=== PATIENT | male | born 1965 | race Caucasian/White ===

== ENCOUNTER 2021-12-20 14:57 | Emergency (ER) | payer BC ==
[~2021-12-20] VITALS: Ht 182.9 cm; Wt 117.9 kg
[2021-12-20 15:01] VITALS: BP_SYST 150
--- NOTE | 2021-12-20 15:10 | NUR ---
bib having left sided cp x 5days [address] patel at bedside, vss
--- NOTE | 2021-12-20 15:42 | NUR ---
BLOOD TO LAB
[2021-12-20 15:52] LABS: BASOPHILS # (AUTO) 0.1 K/uL (0.0-0.2); BASOPHILS % (AUTO) 0.9 % (0.0-2.0); EOSINOPHILS # (AUTO) 0.2 K/uL (0.0-0.4); EOSINOPHILS % (AUTO) 2.3 % (0.0-4.0); HEMATOCRIT 41.6 % (36-54); LYMPHOCYTES # (AUTO) 2.2 K/uL (1.0-5.5); LYMPHOCYTES % (AUTO) 29.5 % (20.5-51.5); MEAN CORPUSCULAR HEMOGLOBIN 29 pg (27-31); MEAN CORPUSCULAR HGB CONC 34 % (32-36); MEAN CORPUSCULAR VOLUME 87 fL (79.0-98.0); MONOCYTES # (AUTO) 0.5 K/uL (0.0-1.0); MONOCYTES % (AUTO) 7.5 % (1.7-9.3); NEUTROPHILS # (AUTO) 4.4 K/uL (1.8-7.7); NEUTROPHILS % (AUTO) 59.8 % (40.0-70.0); PLATELET COUNT (AUTO) 299 K/uL (130-430); RED BLOOD CELL COUNT(AUTO) 4.79 MIL/uL (4.2-6.2); RED CELL DISTRIBUTION WIDTH 13.3 % (9.0-15.0); WHITE BLOOD COUNT (AUTO) 7.3 K/uL (4.8-10.8)
[2021-12-20 16:02] LABS: CALCIUM 9.6 mg/dL (8.4-11.0); CREATININE 1.11 mg/dL (0.55-1.30); POTASSIUM 4.1 mmol/L (3.5-5.1)
[2021-12-20 16:10] LABS: ALBUMIN 4.2 g/dL (3.4-4.8); TOTAL BILIRUBIN 0.7 mg/dL (0.0-1.0)
--- NOTE | 2021-12-20 16:37 | NUR ---
PT UPDATED THAT TROPONIN LAB REPEAT IN 2 HOURS
--- NOTE | 2021-12-20 17:36 | NUR ---
2ND TROPONIN DRAWN TO LAB
[2021-12-20 18:17] VITALS: BP_SYST 121
--- NOTE | 2021-12-20 18:18 | NUR ---
Patient given written and verbal discharge instructions and verbalizes understanding. MILKA CASTILLO MD discussed with patient the results and treatment provided. Patient in stable condition. ID arm band removed. Patient educated on pain management and to follow up with PMD. Pain Scale 0. Opportunity for questions provided and answered. Medication side effect fact sheet provided.
== END 2021-12-20 18:18 | disposition home or self-care (01) ==
LOC: SED 14:57
DX: R07.89 Other chest pain (principal); R00.2 Palpitations; I10 Essential (primary) hypertension; E78.5 Hyperlipidemia, unspecified
CPT/HCPCS: 36415; 71045; 80053; 84484; 85025; 93005; 99285